=== PATIENT | female | born 1970 | race Hispanic/Latino ===

== ENCOUNTER 2017-04-25 00:54 | Inpatient (IN) | payer OTHER ==
[2017-04-25 02:34] LABS: #Basophils 0.1 thou/uL (0.0-0.2); #Eosinphils 0.2 thou/uL (0.0-0.7); #Lymphocytes 1.9 thou/uL (1.20-3.40); #Monocytes 0.6 thou/uL (0.11-0.59); #Neutrophils 8.3 thou/uL (1.40-6.50); %Basophils 0.6 % (0.0-1.0); %Eosinophils 1.6 % (0.0-10.0); %Lymphocytes 17.5 % (21.0-51.0); %Monocytes 5.1 % (0.0-10.0); Hematocrit 42.4 % (36.0-47.0); Mean Platelet Volume 7.9 fL (7.4-10.4); Red Blood Cell (RBC) Count 4.33 mill/uL (4.20-5.40)
[2017-04-25 02:53] LABS: ALT (SGPT) 12 U/L (8-55); AST (SGOT) 15 U/L (5-34); Alkaline Phosphatase 92 U/L (40-150); Anion Gap 14 mmol/L (10-20); BUN (Urea Nitrogen) 24 mg/dL (7.0-18.7); Bilirubin, Total 0.2 mg/dL (0.2-1.2); Calc. Creatinine Clearance 0 mL/min (70-130); Calcium 9.2 mg/dL (7.8-10.44); Carbon Dioxide 19 mmol/L (22-29); Chloride 108 mmol/L (98-107); Estimated GFR-MDRD 76; Globulin 3.4 g/dL (2.4-3.5); Protein, Total 7.2 g/dL (6.0-8.3)
[2017-04-25] MEDS ORDERED: Lorazepam 2 MG/ML VIAL ONE (03:30)
[2017-04-25 03:58] LABS: Bilirubin Negative (Negative); Blood, Urine Large (Negative); Glucose, Urine (Dipstick) Negative (Negative); Ketone, Urine Trace mg/dL (Negative); Nitrite Negative (Negative); Protein, Urine (Dipstick) 100 mg/dL (Neg-Trace); Urobilinogen 0.2 mg/dL (0.2-1.0)
[2017-04-25 04:01] LABS: Bacteria/HPF None Seen HPF (None Seen); WBC/HPF 0-3 HPF (0-3)
[2017-04-25 04:14] LABS: Yeast-All Forms None Seen HPF (None Seen)
[2017-04-25 04:15] LABS: Renal Epithelial None Seen HPF (0-3); Transitional Epithelial NONE SEEN HPF (0-3)
[2017-04-25 04:16] LABS: Hyaline Casts/LPF NONE SEEN LPF (0-3 Hyaline)
[2017-04-25 04:17] LABS: RBC/HPF 0-3 HPF (0-3)
[2017-04-25] MEDS ORDERED: Heparin 25,000 units/D5W 500 ML IV SCH (05:30)
[2017-04-25] MEDS ORDERED: Heparin 10,000 UNITS/ 10 ML VIAL SLOW IVP SCH (05:30)
[2017-04-25 06:08] LABS: PTT 34.8 SEC (22.9-36.1); Prothrombin Time 14.8 SEC (12.0-14.7)
[2017-04-25] MEDS ORDERED: Ondansetron HCl/PF 4 MG/2 ML Vial IVP PRN ×2 (06:59→08:15)
[2017-04-25] MEDS ORDERED: Acetaminophen 325 MG TAB PO PRN (06:59)
[2017-04-25] MEDS ORDERED: Ondansetron ODT 4 MG TAB SL PRN (06:59)
[2017-04-25 07:39] VITALS: BMI 37.7
[2017-04-25] MEDS ORDERED: Nitroglycerin 0.4 MG TAB (25 Tab Bottle) PO PRN (08:09)
[2017-04-25] MEDS ORDERED: Sodium Chloride 0.9% 1,000 ML IV SCH (08:15)
[2017-04-25] MEDS ORDERED: Senokot 8.6 MG TAB PO PRN (08:15)
[2017-04-25] MEDS ORDERED: Calcium Carbonate 500 MG ChewTAB PO PRN (08:15)
[2017-04-25] MEDS ORDERED: Bisacodyl 10 MG SUPP PR PRN (08:15)
[2017-04-25] MEDS ORDERED: Ondansetron ODT 4 MG TAB PO PRN (08:15)
[2017-04-25] MEDS: Docusate 100 MG CAP PO SCH ×2 (09:18→20:31)
[2017-04-25] MEDS: Famotidine 20 MG TAB PO SCH ×2 (09:18→20:33)
[2017-04-25 09:19] LABS: Prothrombin Time 15.9 SEC (12.0-14.7)
[2017-04-25 09:30] LABS: Anion Gap 10 mmol/L (10-20); BUN (Urea Nitrogen) 14 mg/dL (7.0-18.7); BUN/Creatinine Ratio 20.29; Calc. Creatinine Clearance 169 mL/min (70-130); Calcium 8.2 mg/dL (7.8-10.44); Carbon Dioxide 21 mmol/L (22-29); Chloride 111 mmol/L (98-107); Estimated GFR-MDRD Greater than 90; Phosphorus 2.5 mg/dL (2.3-4.7)
[2017-04-25 09:40] LABS: PTT Greater than 250.0 SEC (22.9-36.1)
[2017-04-25] MEDS ORDERED: Cyclobenzaprine 10 MG TAB PO PRN (09:43)
--- NOTE | 2017-04-25 10:16 | HP ---
DATE OF ADMISSION: 04/25/2017 CHIEF COMPLAINT: Syncopal episode. PRIMARY CARE PHYSICIAN: Dr. Vieyra at [facility]. HISTORY OF PRESENT ILLNESS: Patient is a 46-year-old female with obesity and current use of control, presented to the emergency room after an episode of syncope at home. Over the last one week, the patient has been not feeling well. Earlier this week, she had some right calf pain, which she attributed to muscle pull. She has been having low back pain, for which she was evaluated at [facility] 3 days ago and was started on some muscle relaxant. Yesterday, while she was sitting on the chair, back pain worsened. She told her to get a heating pad. By the time the came back, the patient started having seizures. For this reason, EMS was called. The patient also had loss of consciousness. No tongue biting, bladder or bowel incontinence reported. In the emergency room, her initial vital signs showed temperature 97.3, respiration of 20 with pulse rate of 131 with blood pressure of 117/83 with lowest O2 saturation of 87% on 2 liter nasal cannula. The patient had another syncopal/seizure episode when she returned from the bathroom in the emergency room. CT angiogram of the chest was consistent with bilateral pulmonary embolism. She was started on a heparin drip. PAST MEDICAL HISTORY: 1. Obesity. 2. Chronic insomnia. PAST SURGICAL HISTORY: Reviewed with the patient and none. CURRENT HOME MEDICATIONS: 1. control. 2. Advil PM. 3. Zyrtec as needed. ALLERGIES: No known drug allergies. SOCIAL HISTORY: Patient currently lives at home. She is active, she runs a restaurant. No smoking, alcohol, or drug use. FAMILY HISTORY: Mother had blood clots in the leg after a knee surgery. She denies any other family members with hypercoagulable state. REVIEW OF SYSTEMS: The following complete review of systems was negative, unless otherwise mentioned in the HPI or below: Constitutional: Weight loss or gain, ability to conduct usual activities. Skin: Rash, itching. Eyes: Double vision, pain. ENT/Mouth: Nose bleeding, neck stiffness, pain, tenderness. Cardiovascular: Palpitations, dyspnea on exertion, orthopnea. Respiratory: Shortness of breath, wheezing, cough, hemoptysis, fever or night sweats. Gastrointestinal: Poor appetite, abdominal pain, heartburn, nausea, vomiting, constipation, or diarrhea. Genitourinary: Urgency, frequency, dysuria, nocturia. Musculoskeletal: Pain, swelling. Neurologic/Psychiatric: Anxiety, depression. Allergy/Immunologic: Skin rash, bleeding tendency. PHYSICAL EXAMINATION: VITAL SIGNS: As discussed above. GENERAL: A 46-year-old female in no apparent distress. Feels better at this time. HEENT: Head, atraumatic and normocephalic. Sclerae are anicteric. Moist mucous membrane, no oral lesion. NECK: Supple. No JVD appreciated. No carotid bruit. LUNGS: Clear to auscultation bilaterally. No wheezing or rales. HEART: S1, S2 present. Regular rate and rhythm, tachycardic. No rubs or gallops appreciated. No parasternal heaves or pulsation. ABDOMEN: Soft, nontender, bowel sounds present. EXTREMITIES: No edema or calf tenderness. NEUROLOGIC: Grossly nonfocal, moves all four extremities. PSYCHIATRY: Alert, awake, oriented x3. SKIN: Warm and dry. LYMPH NODES: No palpable lymph nodes in the neck. PERIPHERAL VASCULAR: Radial pulses palpable bilaterally. MUSCULOSKELETAL: No joint swelling or tenderness. SKIN: Warm and dry. PERIPHERAL VASCULAR: Radial pulses palpable bilaterally. LABORATORY FINDINGS: D-dimer was 8.8, troponin was 0.130, creatinine of 0.69 with BUN 14, bicarbonate of 19. CBC showed WBC 11 with hemoglobin 13.7 and platelets of 204. Urine specific gravity of 1.050. CT angiogram of the chest, by my review, as discussed above. CT of the brain, by my review, was negative for infiltrate. EKG, by my review, showed sinus tachycardia with some right- sided heart strain. IMPRESSION: 1. Acute hypoxic respiratory failure/syncope secondary to bilateral pulmonary embolism. 2. Bilateral pulmonary embolism, probably precipitated by underlying control pill. She denies any recent immobilization, travel, or underlying malignancy. No family history of hypercoagulable state. 3. Obesity with a BMI 37.7. 4. Low back pain, probably musculoskeletal. Patient was recently evaluated at [facility]. 5. Obesity with BMI 37.7. 6. Dehydration. 7. Metabolic acidosis. 8. Abnormal troponins secondary to pulmonary embolism. 9. Chronic insomnia. PLAN: The patient will be monitored in the intermediate care unit. She is currently on heparin drip that will be continued. We will consult Pulmonary, Dr. Miguel. Hypercoagulable studies will be done. We will get echocardiogram and bilateral lower extremity Doppler. Labs per heparin protocol. We will discontinue control. We will repeat one more set of cardiac enzymes. We would also check a BNP. Risk of anticoagulation discussed with the patient and the family. They stated understanding. ACTIVITY: Bed rest with bedside commode. DIET: Regular. Please note that patient has [facility] insurance. However, she is unstable to be transferred to [facility] at this time. ADITI
--- NOTE | 2017-04-25 11:15 | CT ---
PRELIMINARY REPORT/[facility]/EMERGENCY AFTER HOURS PROCEDURE: Addendum created by Estuardo Johns MD on 04/25/2017 4:54 AM Central Time ([place]\ [place]) Report of this case was called to Margie Ren at 4:51 AM CDT, 04/25/2017. Initial Report created on 04/25/2017 4:51 AM Central Time ([place]) EXAM: CT Angiography Chest With Intravenous Contrast CLINICAL HISTORY: 46 years old, female; Signs and symptoms; Dyspnea; Patient HX: R/O pe TECHNIQUE: Axial computed tomographic angiography images of the chest with intravenous contrast using pulmonary embolism protocol. CONTRAST: 100 mL of ISOVUE administered intravenously. COMPARISON: No relevant prior studies available. FINDINGS: There are extensive bilateral acute appearing pulmonary emboli. Emboli are seen in all lobes of both lungs, most prominent in the lower lobes. The most proximal emboli are seen in the distal aspect of the main pulmonary arteries bilaterally, with more extensive emboli extending into lobar, segmental, and subsegmental arteries bilaterally. Mild reflux of contrast into the IVC and hepatic veins, possibly indicating some right heart strain. No evidence of thoracic aortic dissection or focal aneurysm. No significant hilar or mediastinal lymphadenopathy. No evidence for pneumomediastinum or pneumothorax. Right lung: No significant parenchymal opacity or mass. No pleural fluid. Left lung: No significant parenchymal opacity or mass. No pleural fluid. Small hiatal hernia. Images that include the upper abdomen appear essentially unremarkable. IMPRESSION: Bilateral acute pulmonary emboli, see above details/discussion. No evidence of thoracic aortic dissection or focal aneurysm. Essentially clear lungs, no pleural fluid. Other findings discussed above. Thank you for allowing us to participate in the care of your patient. Dictated and Authenticated by: Estuardo Johns MD 04/25/2017 4:51 AM Central Time ([place] \[place]\ [place]) FINAL REPORT CT ARTERIOGRAM CHEST WITH IV CONTRAST AND 3D MIP IMAGING: DATE: 04/25/17. TIME: Performed on emergency basis at 0316 hours. HISTORY: Chest pain. Dyspnea. Seizure. FINDINGS: No comparison. Findings agree with the preliminary report by Dr. Johns from [facility]. Ext ensive pulmonary emboli are present bilaterally. POS: [facility]
--- NOTE | 2017-04-25 11:16 | CT ---
PRELIMINARY REPORT/[facility]/EMERGENCY AFTER HOURS PROCEDURE: EXAM: CT Head Without Intravenous Contrast CLINICAL HISTORY: 46 years old, female; Signs and symptoms; Other: Seizure TECHNIQUE: Axial computed tomography images of the head/brain without intravenous contrast. COMPARISON: No relevant prior studies available. FINDINGS: No definite or depressed skull fracture. Included paranasal sinuses are clear. No acute intracranial hemorrhage or mass effect. Ventricle size is normal for age. No definite acute infarct by CT. MRI could be more sensitive/specific for an acute infarct if clinically indicated. IMPRESSION: No acute intracranial bleed or mass effect. No definite acute infarct by CT, see above. Thank you for allowing us to participate in the care of your patient. Dictated and Authenticated by: Estuardo Johns MD 04/25/2017 4:42 AM Central Time ([place] \[place]\ [place]) FINAL REPORT CT HEAD NONCONTRAST: DATE: 04/25/17. TIME: Performed on an emergency basis at 0402 hours. HISTORY: Seizure. FINDINGS: No comparison. The findings agree with the preliminary report by Dr. Johns from [facility]. No acute intracranial abnormalities are demonstrated on noncontrast CT head. POS: [facility]
[2017-04-25] MEDS: Sodium Chloride 0.9% 1,000 ML IV SCH (11:38)
[2017-04-25 11:41] LABS: Troponin I 0.138 ng/mL (< 0.028)
--- NOTE | 2017-04-25 11:55 | ULT ---
BILATERAL LOWER EXTREMITY VENOUS SONOGRAM: HISTORY: Pulmonary embolus. FINDINGS: Echogenic thrombus is present within the distal left superficial femoral vein and the popliteal vein with incomplete compressibility. Good color and spectral Doppler flow are present at each common f emoral vein and greater saphenous junction and throughout the remainder of the femoral and posterior tibial veins and deep femoral veins and the right popliteal vein. IMPRESSION: Deep venous thrombus involvement of the left femoral and popliteal veins. POS: [facility]
[2017-04-25 12:12] LABS: PTT 116.1 SEC (22.9-36.1)
--- NOTE | 2017-04-25 12:25 | EKG ---
Test Reason : Blood Pressure : / mmHG Vent. Rate : 123 BPM Atrial Rate : 123 BPM P-R Int : 132 ms QRS Dur : 068 ms QT Int : 318 ms P-R-T Axes : 036 003 007 degrees QTc Int : 455 ms Sinus tachycardia Cannot rule out Inferior infarct , age undetermined Abnormal ECG No specific ST-T segment abnormalities Confirmed by MICAELA AGUILLON ([id number]), society editor RASHAD DANIELLE ([id number]) on 04/25/2017 12:25:27 PM Referred By: Confirmed By:MICAELA AGUILLON
[2017-04-25] MEDS: Enoxaparin Sodium 100 MG/ML SYRINGE SC SCH (13:28)
[2017-04-25] MEDS: HYDROcodone/Acetaminophen 5/325 mg Tablet PO PRN ×2 (13:32→22:37)
--- NOTE | 2017-04-25 17:05 | PRG ---
DATE OF SERVICE: 04/25/2017 SUBJECTIVE: Ms. Calle is a 46-year-old female, who had an episode of syncope at home. She said she has had calf discomfort for over a week. She was seen at [facility] several days ago and started on a muscle relaxant. When she had syncope, EMS was called. She was transferred here and found to have a fairly significa nt clot burden, on CT angiogram. She was started on a heparin drip. PAST MEDICAL HISTORY: Remarkable for childbirth, who has been healthy. SOCIAL HISTORY: She is a nonsmoker, nondrinker. MEDICATIONS: She is on oral contraceptive agent. FAMILY HISTORY: She has no family history of blood clots. REVIEW OF SYSTEMS: Otherwise negative. PHYSICAL EXAMINATION: VITAL SIGNS: She is afebrile, heart rate 76, respiratory rate is 20, oximetry is 97 on 2 liters, an d blood pressure 106/71. EYES: Pupils are equal. Sclerae is anicteric. NECK: Supple. LUNGS: Clear. CARDIOVASCULAR: Regular rhythm. S1 and S2 are normal. ABDOMEN: Soft and nontender. EXTREMITIES: Without clubbing, cyanosis, or edema. LABORATORY DATA: White count 11, hemoglobin 13.7, platelets 204,000. Electrolytes were unremarkabl e. IMPRESSION: Subacute submassive thromboembolic disease when episode of syncope and hypotension base d on her history. We will switch her to subcutaneous Lovenox. She is just over [address] her on 100 mg subcu q.12 hours. Starting an hour after heparin has been discontinued. I will be happy to follow with the other physicians caring for her.
[2017-04-26] MEDS: Enoxaparin Sodium 100 MG/ML SYRINGE SC SCH ×2 (01:53→14:21)
[2017-04-26] MEDS: Sodium Chloride 0.9% 1,000 ML IV SCH (03:18)
[2017-04-26 05:45] LABS: Hematocrit 35.1 % (36.0-47.0)
[2017-04-26 06:10] LABS: Anion Gap 8 mmol/L (10-20); BUN (Urea Nitrogen) 13 mg/dL (7.0-18.7); Calc. Creatinine Clearance 164 mL/min (70-130); Calcium 8.1 mg/dL (7.8-10.44); Carbon Dioxide 23 mmol/L (22-29); Chloride 112 mmol/L (98-107); Estimated GFR-MDRD 88
[2017-04-26] MEDS: Docusate 100 MG CAP PO SCH ×2 (08:52→21:05)
[2017-04-26] MEDS: Famotidine 20 MG TAB PO SCH ×2 (08:52→21:06)
--- NOTE | 2017-04-26 14:16 | PDOC.PN ---
- Subjective Encounter Start Date: 04/26/17 Encounter Start Time: 14:00 Subjective: f/u for submassive bilat PE's and LLE DVT on initial Heparin gtt now -: converted to Lovenox SC. Still SOB with minor movement or activity -: and remains on O2 supplementation. - Objective Resuscitation Status: Resuscitation Status FULL:Full Resuscitation MAR Reviewed: Yes Vital Signs & Weight: Vital Signs (12 hours) Temp Pulse Resp BP Pulse Ox 04/26/17 12:00 97.5 F L 93 20 132/93 H 95 04/26/17 08:00 98.4 F 100 20 95 04/26/17 07:59 98.4 F 100 20 119/79 95 04/26/17 06:35 96 04/26/17 05:28 95 04/26/17 04:00 98.3 F 99 22 H 102/77 95 Weight Weight 234 lb 1.6 oz I&O: 04/25/17 04/26/17 04/27/17 06:59 06:59 06:59 Intake Total 1860 240 Output Total 850 Balance 1010 240 Result Diagrams: 04/26/17 04:58 04/26/17 04:58 Additional Labs: Laboratory Tests 04/25/17 02:21 Hgb 13.7 Radiology Reviewed by me: Yes (CTA chest - extensive bilat PE's; LLE sono - + popliteal/femoral DVT) EKG Reviewed by me: Yes (Tele - sinus tachycardia in 110's) Phys Exam - Physical Examination Constitutional: NAD HEENT: PERRLA, oral pharynx no lesions Neck: no JVD, supple Respiratory: no wheezing, clear to auscultation bilateral tachycardic Gastrointestinal: soft, non-tender, no distention, positive bowel sounds LLE with edema Musculoskeletal: pulses present Neurological: normal sensation, moves all 4 limbs Psychiatric: A&O x 3 Skin: normal turgor, cap refill <2 seconds Dx/Plan (1) Pulmonary embolism Code(s): I26.99 - OTHER PULMONARY EMBOLISM WITHOUT ACUTE COR PULMONALE Status : Acute Qualifiers: Chronicity: acute Comment: Extensive, bilateral involvement with hypoxia and syncope, continue Lovenox 100mg SC q12h, O2 to maintain sats >90%, minimal movement and activity (2) Acute respiratory failure with hypoxia Code(s): J96.01 - ACUTE RESPIRATORY FAILURE WITH HYPOXIA Status: Acute Comment: Continue O2 supplementation, monitor respiratory status for decompensation, high risk (3) Syncope and collapse Code(s): R55 - SYNCOPE AND COLLAPSE Status: Acute Comment: Secondary to PE' s (4) Left femoral vein DVT Code(s): I82.412 - ACUTE EMBOLISM AND THROMBOSIS OF LEFT FEMORAL VEIN Status: Acute Qualifiers: Chronicity: acute Qualified Code(s): I82.412 - Acute embolism and thrombosis of left femoral vein Comment: Continue Lovenox, minimal activity for the next 48h - Plan plan discussed w/ family, medical social worker Continue Lovenox 100mg SC q12h off Heparin gtt -: O2 supplementation -: Thrombosis panel pending -: D/C all OCP's -: AM lab: BMP, CBC * Remains high risk for clinical decompensation outweighing any benefit of transfer
--- NOTE | 2017-04-26 15:54 | PRG ---
DATE OF SERVICE: 04/26/2017 SUBJECTIVE: Maricarmen Calle says she is feeling better. She denies shortness of breath. She was g etting out of breath, talking when she came in. She says she can talk without any dyspnea. Now, fabian soni is still in bed. OBJECTIVE: VITAL SIGNS: Afebrile, heart rate in the 90s to 108, respiratory rate in the teens to 20s, oximetry is 94 on 2 liters, blood pressure 124/89. LUNGS: Clear. HEART: Regular rhythm. ABDOMEN: Soft. IMPRESSION: Subacute thromboembolic disease with syncope at home. I have asked to stay in bed for another day. Tomorrow we will let her get up in the chair. We will continue with Lovenox for now. She appears to be stable and I explained to her that the risk of fu rther embolic events decreases each day by the 3rd or 4th day embolic, further embolic events were u ncommon. I will continue to follow along with the other physicians caring for her.
[2017-04-26] MEDS: Acetaminophen 325 MG TAB PO PRN (19:29)
[2017-04-27] MEDS: Enoxaparin Sodium 100 MG/ML SYRINGE SC SCH ×2 (01:56→13:56)
[2017-04-27 05:31] LABS: Hematocrit 35.5 % (36.0-47.0)
[2017-04-27 05:44] LABS: Anion Gap 10 mmol/L (10-20); BUN (Urea Nitrogen) 9 mg/dL (7.0-18.7); Calc. Creatinine Clearance 177 mL/min (70-130); Calcium 8.5 mg/dL (7.8-10.44); Carbon Dioxide 23 mmol/L (22-29); Chloride 109 mmol/L (98-107); Estimated GFR-MDRD Greater than 90
[2017-04-27] MEDS: Famotidine 20 MG TAB PO SCH ×2 (08:26→20:30)
[2017-04-27] MEDS: Docusate 100 MG CAP PO SCH ×2 (08:26→20:30)
--- NOTE | 2017-04-27 09:23 | PDOC.PN ---
- Subjective Encounter Start Date: 04/27/17 Encounter Start Time: 09:15 Subjective: f/u bilat PE's and LLE DVT tx with Lovenox 100mg SC q12h. Less -: dyspnea today but noticable with movement. Remains on 2L/min -: O2 via NC. - Objective Resuscitation Status: Resuscitation Status FULL:Full Resuscitation MAR Reviewed: Yes Vital Signs & Weight: Vital Signs (12 hours) Temp Pulse Resp BP Pulse Ox 04/27/17 07:31 97.9 F 96 20 97 04/27/17 07:00 98.0 F 97 16 116/95 H 97 04/27/17 04:00 97.9 F 101 H 20 108/70 94 L 04/27/17 03:43 98 04/27/17 00:00 98.5 F 97 20 123/86 98 Weight Weight 233 lb 14.4 oz I&O: 04/26/17 04/27/17 04/28/17 06:59 06:59 06:59 Intake Total 1860 1924 Output Total 850 3000 Balance 1010 -1076 Result Diagrams: 04/27/17 04:49 04/27/17 04:49 Radiology Reviewed by me: Yes (2D Echo - EF 60%, elevated RA pressure) EKG Reviewed by me: Yes (Tele - Sinus tachycardia in 100's) Phys Exam - Physical Examination alert, responsive HEENT: PERRLA, oral pharynx no lesions Neck: no JVD, supple Respiratory: no wheezing, clear to auscultation bilateral tachycardic Gastrointestinal: soft, non-tender, no distention, positive bowel sounds LLE with edema Musculoskeletal: pulses present Neurological: normal sensation, moves all 4 limbs Psychiatric: A&O x 3 Skin: normal turgor, cap refill <2 seconds Dx/Plan (1) Pulmonary embolism Code(s): I26.99 - OTHER PULMONARY EMBOLISM WITHOUT ACUTE COR PULMONALE Status : Acute Qualifiers: Chronicity: acute Comment: Extensive, bilateral involvement with hypoxia and syncope, continue Lovenox 100mg SC q12h, O2 to maintain sats >90%, up to chair (2) Acute respiratory failure with hypoxia Code(s): J96.01 - ACUTE RESPIRATORY FAILURE WITH HYPOXIA Status: Acute Comment: Continue O2 supplementation, monitor respiratory status for decompensation, high risk (3) Syncope and collapse Code(s): R55 - SYNCOPE AND COLLAPSE Status: Acute Comment: Secondary to PE' s (4) Left femoral vein DVT Code(s): I82.412 - ACUTE EMBOLISM AND THROMBOSIS OF LEFT FEMORAL VEIN Status: Acute Qualifiers: Chronicity: acute Qualified Code(s): I82.412 - Acute embolism and thrombosis of left femoral vein Comment: Continue Lovenox, sit in chair and short distance ambulation to void - Plan plan discussed w/ family, social media marketing specialist Continue Lovenox 100mg SC q12h -: Continue O2 to maintain sats > 90% -: Thrombosis panel pending -: Avoid OCP's -: Remains high risk * AM lab: H/H
--- NOTE | 2017-04-27 12:23 | PRG ---
DATE OF SERVICE: 04/27/2017 PHYSICAL EXAMINATION: VITAL SIGNS: Ms. Calle is afebrile, heart rate is 96, respiratory rate is 20, oximetry is 97, blood pressure 116/95. LUNGS: Clear. HEART: Regular rhythm. ABDOMEN: Soft. IMPRESSION: Submassive thromboembolic disease with syncope related to thromboembolic disease. She is finally stable to get out of bed. She can be switched to an oral agent which ever one her insurance approves this afternoon and her Lo venox can be discontinued. Hopefully, she can be discharged home in the morning. I have turned off her oxygen, I suspect room air sat will be in the low to mid 90s.
[2017-04-27] MEDS: Acetaminophen 325 MG TAB PO PRN (22:39)
[2017-04-28] MEDS: Enoxaparin Sodium 100 MG/ML SYRINGE SC SCH (01:37)
[2017-04-28 04:45] LABS: Hematocrit 38.1 % (36.0-47.0)
[2017-04-28] MEDS: Docusate 100 MG CAP PO SCH (09:06)
[2017-04-28] MEDS: Famotidine 20 MG TAB PO SCH (09:06)
[2017-04-28 11:41] VITALS: BP 110/77; TEMP 97.5
[2017-04-28 12:10] LABS: Protein C Activity 85 % (78-152)
--- NOTE | 2017-04-28 16:47 | PRG ---
DATE OF SERVICE: 04/28/2017 SUBJECTIVE: Ms. Calle says she feels great. She is discharged. PHYSICAL EXAMINATION: VITAL SIGNS: She is afebrile, heart rate is 104, respiratory rate 16, oximetry is 93%, blood pressu re 110/77. LUNGS: Clear. IMPRESSION: Thromboembolic disease. Her insurance is approved. Alex, prescriptions have been myles grimaldo. I will see her in follow up in a month and encouraged her to call me should she have any pr oblems.
--- NOTE | 2017-04-28 20:40 | DIS ---
DATE OF ADMISSION: 04/25/2017 DATE OF DISCHARGE: 04/28/2017 DISCHARGE DIAGNOSES: 1. Acute bilateral submassive pulmonary emboli. 2. Acute hypoxic respiratory failure secondary to #1, improved. 3. Syncope secondarily to #1, resolved. 4. Left femoral vein deep venous thrombosis, likely secondary to oral contraceptive use. CONSULTATIONS: Dr. Miguel with Pulmonology Service. PERTINENT LABORATORY DATA AND X-RAY FINDINGS: Basic metabolic profile within normal limits. Calciu m ranged between 8.1-8.5, phosphorus 2.5, magnesium 2.0, troponin I ranged between 0.130-0.140. LFT s within normal limits. BNP 872. CBC showed a hemoglobin ranging between 11.5-13.7. Thrombosis pa dick pending. CT angiogram of the chest dated 04/25/2017 showed acute bilateral pulmonary emboli wit h extensive involvement. Please see dictated report for full details. CT of the brain dated 2016 showed no acute intracranial process. Bilateral lower extremity venous Doppler study dated 01/2017 showed DVT of the left femoral and popliteal veins. A 2D transthoracic echocardiogram dated 04/25/2017 showed ejection fraction of 60%-65%, elevated right ventricular systolic pressure. Incr eased right atrial pressure. Mild to moderate tricuspid valve regurgitation. HOSPITAL COURSE: Patient was admitted to the intermediate care unit after initially presenting stat us post syncopal episode x2 with associated hypoxemia. The patient underwent extensive evaluation i ncluding CT angiogram of the chest showing extensive bilateral pulmonary emboli, likely secondarily to DVT of the left lower extremity involving the femoral and popliteal veins related to oral contrac eptive use. The patient was placed on IV heparin infusion and given oxygen supplementation in addit ion to consultation with pulmonology service. The patient was continued on heparin therapy, transit ioning to subcutaneous Lovenox with overall stabilization of respiratory status. The patient weaned off oxygen supplementation to maintain O2 saturations in the mid to low 90% range on room air. The patient was counseled to discontinue oral contraceptives and avoid NSAID use with anticoagulants. The patient overall clinically stabilized with anticoagulation support and oxygen supplementation an d ready for discharge on 04/28/2017. DISCHARGE MEDICATIONS: 1. Eliquis 10 mg p.o. b.i.d. x7 days, followed by 5 mg p.o. b.i.d. x6 months. 2. Zyrtec 10 mg one tab p.o. daily. 3. Skelaxin 800 mg p.o. t.i.d. p.r.n. FOLLOWUP: Patient will follow up with Dr. Vieyra at [facility] within 7 days of discharge. The patient will follow up with Dr. Kadeem Miguel with Pulmonology Service and to [facility] his office for appointment time and date. CONDITION ON DISCHARGE: Stable. ACTIVITY: ad dudley. DIET: Heart healthy. CODE STATUS: FULL. DISPOSITION: Home 04/28/2017. Total time preparing and coordinating this discharge 31 minutes.
== END 2017-04-28 15:35 | disposition home or self-care (01) | DRG 175 ==
LOC: ERS 00:54 → IMCU/EMU 06:43
PROVIDERS: ADMIT Internal Medicine; ATTEND Internal Medicine
DX: I26.99 Other pulmonary embolism without acute cor pulmonale (principal); J96.01 Acute respiratory failure with hypoxia; I82.412 Acute embolism and thrombosis of left femoral vein; E87.2 Acidosis; E66.9 Obesity, unspecified; Z68.37 Body mass index [BMI] 37.0-37.9, adult; M54.5 Low back pain; F51.04 Psychophysiologic insomnia; T38.4X5A Adverse effect of oral contraceptives, initial encounter
CPT/HCPCS: 36415; 70450; 71275; 80048; 80053; 81001; 81240; 82553; 83090; 83735; 83880; 84484; 85014; 85018; 85025; 85049; 85240; 85300; 85303; 85305; 85307; 85379; 85598; 85610; 85730; 93005; 93306; 93970; 94760; 96361; 96365; 96375; 96376; J1644; J2060